=== PATIENT | male | born 1955 | race Caucasian/White ===

== ENCOUNTER 2016-05-27 11:14 | Inpatient (IN) | payer OTHER ==
[2016-05-27 12:30] VITALS: BMI 23.7
--- NOTE | 2016-05-27 13:49 | HP ---
COWS - Scale Resting Pulse: 0= [place] 80 or Below Sweatin=Flushed/Facial Moisture Restless Observation: 3= Extraneous Movement Pupil Size: 2= Moderately Dilated Bone or Joint Aches: 2= Severe Diffuse Aches Runny Nose/ Eye Tearin= Runny Nose/Eyes GI Upset > 30mins: 3= Vomiting/Diarrhea Tremor Observation: 2= Slight Tremor Visible Yawning Observation: 2= >3x During Session Anxiety or Irritability: 2=Irritable/Anxious Goose Flesh Skin: 0=Smooth Skin COWS Score: 20 Admission ROS BHS - HPI Chief Complaint: i need help to stop using drug heroin Allergies/Adverse Reactions: Allergies Allergy/AdvReac Type Severity Reaction Status Date / Time cyclobenzaprine HCl Allergy Severe Rash Verified 05/27/16 13:51 [facility] History of Present Illness: this 60 years old male with heroin dependence,withdrawal symptom,last detox 1014 low back pain nicotine dependence longest period of sobriety 15 years needed help to stop using drug Exam Limitations: No Limitations - Ebola screening Have you traveled outside of the country in the last 21 days: No Have you been sick,other than usual withdrawal symptoms: No - Review of Systems Constitutional: Chills, Diaphoresis, Loss of Appetite, Malaise, Night Sweats, Changes in sleep, Weakness, Unintentional Wgt. Loss EENT: reports: Nose Congestion Respiratory: reports: No Symptoms reported Cardiac: reports: No Symptoms Reported GI: reports: Diarrhea, Vomiting, Indigestion, Abdominal cramping : reports: No Symptoms Reported Musculoskeletal: reports: Back Pain, Joint Pain, Muscle Pain Integumentary: reports: Dryness Neuro: reports: Headache, Tremors Endocrine: reports: No Symptoms Reported Hematology: reports: No Symptoms Reported Psychiatric: reports: No Sypmtoms Reported Other Systems: Reviewed and Negative Patient History - Patient Medical History Hx Anemia: No Hx Asthma: No Hx Chronic Obstructive Pulmonary Disease (COPD): No Hx Cancer: No Hx Cardiac Disorders: No Hx Congestive Heart Failure: No Hx Hypertension: No Hx Hypercholesterolemia: No Hx Pacemaker: No HX Cerebrovascular Accident: No Hx Seizures: No Hx Dementia: No Hx Diabetes: No Hx Gastrointestinal Disorders: No Hx Liver Disease: No Hx Genitourinary Disorders: No Hx Sexually Transmitted Disorders: No Hx Renal Disease (ESRD): No Hx Thyroid Disease: No Hx Human Immunodeficiency Virus (HIV): No (last 03/25 negative) Hx Hepatitis C: No Hx Depression: No Hx Suicide Attempt: No Hx Bipolar Disorder: No Hx Schizophrenia: No Other Medical History: no suicidal,no homicidal - Patient Surgical History Past Surgical History: Yes Hx Orthopedic Surgery: Yes (dislocation of right sholder in 1991,sugery for fx left elbow) - PPD History Previous Implant?: Yes Implanted On Prior R Admission?: No PPD to be Administered?: Yes - Smoking Cessation Smoking history: Current every day smoker Have you smoked in the past 12 months: Yes Aproximately how many cigarettes per day: 2 Cigars Per Day: 0 Hx Chewing Tobacco Use: No Initiated information on smoking cessation: Yes 'Breaking Loose' booklet given: 05/27/16 - Substance & Tx. History Hx Alcohol Use: No Hx Substance Use: Yes Substance Use Type: Heroin Hx Substance Use Treatment: Yes (2013) - Substances Abused Heroin Route: Inhalation Frequency: Daily Amount used: 5 BAGS Age of first use: 49 Date of Last Use: 05/26/16 Family Disease History - Family Disease History Family History: Denies Admission [facility] - Vital Signs Vital Signs: Vital Signs - 24 hr 05/27/16 12:28 Temperature 96.8 F L Pulse Rate 54 L Respiratory 18 Rate Blood Pressure 108/59 - Physical General Appearance: Yes: Moderate Distress, Tremorous, Irritable, Sweating, Anxious HEENTM: Yes: Nasal Congestion Respiratory: Yes: Lungs Clear Neck: Yes: Within Normal Limits Breast: Yes: Within Normal Limits Cardiology: Yes: Within Normal Limits, Regular Rhythm, Regular Rate, S1, S2 Abdominal: Yes: Within Normal Limits, Normal Bowel Sounds, Non Tender, Flat, Soft Genitourinary: Yes: Within Normal Limits Back: Yes: Muscle Spasm Musculoskeletal: Yes: Back pain, Joint Stiffness, Muscle Pain Extremities: Yes: Tremors Neurological: Yes: extrusion line operator II-XII NML intact, Fully Oriented, Alert, Motor Strength 5/5 Integumentary: Yes: Dry Lymphatic: Yes: Within Normal Limits - Diagnostic (1) Opioid dependence with withdrawal Current Visit: Yes Status: Acute (2) Chronic low back pain Current Visit: Yes Status: Acute (3) Nicotine dependence Current Visit: Yes Status: Acute (4) Fracture of left elbow Current Visit: Yes Status: Acute (5) S/P surgery for recurrent dislocation of shoulder Current Visit: Yes Status: Acute (6) Weight loss Current Visit: Yes Status: Acute Cleared for Admission [facility] Level of Care: Medically Managed Detox Regimen/Protocol: Methadone [facility] Breath Alcohol Content Breath Alcohol Content: 0 Urine Drug Screen - Results Drug Screen Negative: No Urine Drug Screen Results: OPI-Opiates, MTD-Methadone
[2016-05-27] MEDS ORDERED: ACETAMINOPHEN 325 MG TABLET (FP) PO PRN (14:13)
[2016-05-27] MEDS ORDERED: MAGNESIUM HYDROX 2400MG/30ML ORAL SUSPENSION 30 ML CUP PO PRN (14:13)
[2016-05-27] MEDS ORDERED: MAGNESIUM CITRATE 300 ML BOTTLE PO PRN (14:13)
[2016-05-27] MEDS ORDERED: MAG HYDROX/AL HYDROX/SIMETH 30 ML UNIT-DOSE CUP PO PRN (14:13)
[2016-05-27] MEDS ORDERED: MENTHOL/PHENOL 1 EACH UD MM PRN (14:13)
[2016-05-27] MEDS ORDERED: IBUPROFEN 400 MG TABLET (FP) PO PRN (14:13)
[2016-05-27] MEDS ORDERED: P-EPHED 60MG/TRIPROLIDI 2.5MG TABLET PO PRN (14:13)
[2016-05-27] MEDS ORDERED: guaiFENesin/D-METHORPHAN HB 10 ML UNIT-DOSE CUPS PO PRN (14:13)
[2016-05-27] MEDS ORDERED: hydrOXYzine PAMOATE 25 MG CAPSULE (FP) PO PRN (14:13)
[2016-05-27] MEDS ORDERED: LOPERAMIDE HCL 2 MG CAPSULE PO PRN (14:13)
[2016-05-27] MEDS ORDERED: METHADONE HCL 10 MG TABLET (FOR DETOX USE ONLY) PO ONE ×2 (14:38→23:00)
[2016-05-27] MEDS: diazePAM 5 MG TABLET PO PRN ×2 (15:22→22:03)
[2016-05-27] MEDS: NICOTINE 7 MG/24 HOURS TOPICAL PATCH TD SCH (15:26)
[2016-05-27] MEDS: THIAMINE HCL 100 MG TABLET (FP) PO SCH (22:03)
[2016-05-27 22:32] LABS: URINE APPEARANCE CLEAR; URINE BILIRUBIN NEGATIVE (NEGATIVE); URINE BLOOD NEGATIVE (NEGATIVE); URINE COLOR LTYELLOW; URINE GLUCOSE (UA) NEGATIVE (NEGATIVE); URINE KETONE NEGATIVE (NEGATIVE); URINE LEUK ESTERASE NEGATIVE (NEGATIVE); URINE NITRITE NEGATIVE (NEGATIVE); URINE PROTEIN NEGATIVE (NEGATIVE); URINE UROBILINOGEN NEGATIVE E.U./dl (0.2-1.0)
[2016-05-28] MEDS: diazePAM 5 MG TABLET PO PRN ×2 (05:31→17:17)
[2016-05-28] MEDS ORDERED: METHADONE HCL 10 MG TABLET (FOR DETOX USE ONLY) PO ONE (10:00)
[2016-05-28] MEDS: PRENATAL VITAMINS W/ FOLIC ACID TABLET (FP) PO SCH (10:06)
[2016-05-28] MEDS: NICOTINE 7 MG/24 HOURS TOPICAL PATCH TD SCH (10:06)
[2016-05-28 10:32] LABS: MCH 24.7 pg (25.7-33.7); MCHC 31.8 g/dl (32.0-35.9); MEAN CELL VOLUME 77.6 fl (80-96); MEAN PLT VOLUME 8.6 fl (7.5-11.1); PLATELET COUNT 211 K/MM3 (134-434); RDW 15.3 % (11.9-15.9); WHITE BLOOD COUNT 6.2 K/mm3 (4.0-10.0)
[2016-05-28 10:49] LABS: ALBUMIN 3.9 g/dl (3.4-5.0); ALK PHOS 79 U/L (45-117); ANION GAP 9 (8-16); BILIRUBIN,TOTAL 0.3 mg/dL (0.2-1.0); CALCIUM 8.6 mg/dL (8.5-10.1); CO2 28 mmol/L (21-32); CREATININE 0.9 mg/dL (0.7-1.3); GLUCOSE,RANDOM 83 mg/dL (74-106); SGOT/AST 13 U/L (15-37); SGPT/ALT 19 U/L (12-78); TOT PROT 7.5 g/dl (6.4-8.2)
--- NOTE | 2016-05-28 13:25 | EKG ---
Test Reason : Blood Pressure : / mmHG Vent. Rate : 054 BPM Atrial Rate : 054 BPM P-R Int : 168 ms QRS Dur : 106 ms QT Int : 462 ms P-R-T Axes : 068 053 044 degrees QTc Int : 438 ms SINUS BRADYCARDIA POSSIBLE LEFT ATRIAL ENLARGEMENT BORDERLINE ECG NO PREVIOUS ECGS AVAILABLE Confirmed by MILLA NUNES, LIZZETTE ([id number]) on 05/28/2016 1:24:57 PM Referred By: Confirmed By:LIZZETTE LOYOLA MD
--- NOTE | 2016-05-28 13:56 | PN ---
BHS COWS - Scale Resting Pulse: 0= [place] 80 or Below Sweatin= Chills/Flushing Restless Observation: 1= Difficult to Sit Still Pupil Size: 0= Normal to Room Light Bone or Joint Aches: 1= Mild Discomfort Runny Nose/ Eye Tearin= Nasal Congestion GI Upset > 30mins: 1= Stomach Cramp Tremor Observation of Outstretched Hands: 2= Slight Tremor Visible Yawning Observation: 1= 1-2x During Session Anxiety or Irritability: 2=Irritable/Anxious Goose Flesh Skin: 3=Piloerection COWS Score: 13 BHS Progress Note (SOAP) Subjective: Tremors, Stomach Cramping, Hot / Cold sensations, Sweating, Interrupted sleep. Objective: PT. A & O X 2 (DISORIENTED ABOUT DATE / DAY). 05/28/16 13:54 Vital Signs Temperature 97 F L 05/28/16 10:56 Pulse Rate 61 05/28/16 10:56 Respiratory Rate 18 05/28/16 10:56 Blood Pressure 108/61 05/28/16 10:56 O2 Sat by Pulse Oximetry (%) Laboratory Last Values WBC 6.2 K/mm3 (4.0-10.0) 05/28/16 05:50 RBC 5.13 M/mm3 (4.00-5.60) 05/28/16 05:50 Hgb 12.7 GM/dL (11.7-16.9) 05/28/16 05:50 Hct 39.8 % (35.4-49) 05/28/16 05:50 MCV 77.6 fl (80-96) L 05/28/16 05:50 MCHC 31.8 g/dl (32.0-35.9) L 05/28/16 05:50 RDW 15.3 % (11.9-15.9) 05/28/16 05:50 Plt Count 211 K/MM3 (134-434) 05/28/16 05:50 MPV 8.6 fl (7.5-11.1) 05/28/16 05:50 Sodium 138 mmol/L (136-145) 05/28/16 05:50 Potassium 4.1 mmol/L (3.5-5.1) 05/28/16 05:50 Chloride 101 mmol/L (98-107) 05/28/16 05:50 Carbon Dioxide 28 mmol/L (21-32) 05/28/16 05:50 Anion Gap 9 (8-16) 05/28/16 05:50 BUN 13 mg/dL (7-18) 05/28/16 05:50 Creatinine 0.9 mg/dL (0.7-1.3) 05/28/16 05:50 Creat Clearance w eGFR > 60 (>60) 05/28/16 05:50 Random Glucose 83 mg/dL (74-106) 05/28/16 05:50 Calcium 8.6 mg/dL (8.5-10.1) 05/28/16 05:50 Total Bilirubin 0.3 mg/dL (0.2-1.0) 05/28/16 05:50 AST 13 U/L (15-37) L 05/28/16 05:50 ALT 19 U/L (12-78) 05/28/16 05:50 Alkaline Phosphatase 79 U/L (45-117) 05/28/16 05:50 Total Protein 7.5 g/dl (6.4-8.2) 05/28/16 05:50 Albumin 3.9 g/dl (3.4-5.0) 05/28/16 05:50 Urine Color Ltyellow 05/27/16 22:00 Urine Appearance Clear 05/27/16 22:00 Urine pH 5.0 (5.0-8.0) 05/27/16 22:00 Ur Specific [place] 1.018 (1.001-1.035) 05/27/16 22:00 Urine Protein Negative (NEGATIVE) 05/27/16 22:00 Urine Glucose (UA) Negative (NEGATIVE) 05/27/16 22:00 Urine Ketones Negative (NEGATIVE) 05/27/16 22:00 Urine Blood Negative (NEGATIVE) 05/27/16 22:00 Urine Nitrite Negative (NEGATIVE) 05/27/16 22:00 Urine Bilirubin Negative (NEGATIVE) 05/27/16 22:00 Urine Urobilinogen Negative E.U./dl (0.2-1.0) 05/27/16 22:00 Ur Leukocyte Esterase Negative (NEGATIVE) 05/27/16 22:00 RPR Titer Nonreactive (NONREACTIVE) 05/28/16 05:50 LABS NOTED. Assessment: 05/28/16 13:55 WITHDRAWAL SYMPTOMS. Plan: CONTINUE DETOX.
[2016-05-28] MEDS: diphenhydrAMINE HCL 50 MG CAPSULE PO PRN (22:20)
[2016-05-28] MEDS: THIAMINE HCL 100 MG TABLET (FP) PO SCH (22:20)
[2016-05-29] MEDS: diazePAM 5 MG TABLET PO PRN ×2 (04:20→20:22)
--- NOTE | 2016-05-29 09:50 | PN ---
BHS COWS - Scale Resting Pulse: 0= [place] 80 or Below Sweatin=Flushed/Facial Moisture Restless Observation: 1= Difficult to Sit Still Pupil Size: 0= Normal to Room Light Bone or Joint Aches: 2= Severe Diffuse Aches Runny Nose/ Eye Tearin= Runny Nose/Eyes GI Upset > 30mins: 2= Nausea/Diarrhea Tremor Observation of Outstretched Hands: 2= Slight Tremor Visible Yawning Observation: 1= 1-2x During Session Anxiety or Irritability: 2=Irritable/Anxious Goose Flesh Skin: 0=Smooth Skin COWS Score: 14 BHS Progress Note (SOAP) Subjective: Anxiety,tremors,sweating,interrupted sleep,restless Objective: 05/29/16 09:49 Vital Signs - 8 hr 05/29/16 05/29/16 03:30 06:16 Temperature 96 F L Pulse Rate 53 L Respiratory 18 16 Rate Blood Pressure 96/60 Laboratory Tests 05/27/16 05/28/16 05/28/16 22:00 05:50 05:50 WBC 6.2 RBC 5.13 Hgb 12.7 Hct 39.8 MCV 77.6 L MCHC 31.8 L RDW 15.3 Plt Count 211 MPV 8.6 Sodium 138 Potassium 4.1 Chloride 101 Carbon Dioxide 28 Anion Gap 9 BUN 13 Creatinine 0.9 Creat Clearance w eGFR > 60 Random Glucose 83 Calcium 8.6 Total Bilirubin 0.3 AST 13 L ALT 19 Alkaline Phosphatase 79 Total Protein 7.5 Albumin 3.9 Urine Color Ltyellow Urine Appearance Clear Urine pH 5.0 Ur Specific [place] 1.018 Urine Protein Negative Urine Glucose (UA) Negative Urine Ketones Negative Urine Blood Negative Urine Nitrite Negative Urine Bilirubin Negative Urine Urobilinogen Negative Ur Leukocyte Esterase Negative RPR Titer 05/28/16 05:50 WBC RBC Hgb Hct MCV MCHC RDW Plt Count MPV Sodium Potassium Chloride Carbon Dioxide Anion Gap BUN Creatinine Creat Clearance w eGFR Random Glucose Calcium Total Bilirubin AST ALT Alkaline Phosphatase Total Protein Albumin Urine Color Urine Appearance Urine pH Ur Specific [place] Urine Protein Urine Glucose (UA) Urine Ketones Urine Blood Urine Nitrite Urine Bilirubin Urine Urobilinogen Ur Leukocyte Esterase RPR Titer Nonreactive labs noted Assessment: 05/29/16 09:50 Withdrawal sx. Plan: Continue detox
[2016-05-29] MEDS ORDERED: METHADONE HCL 5 MG TABLET (FOR DETOX USE ONLY) PO ONE (10:00)
[2016-05-29] MEDS: NICOTINE 7 MG/24 HOURS TOPICAL PATCH TD SCH (10:23)
[2016-05-29] MEDS: PRENATAL VITAMINS W/ FOLIC ACID TABLET (FP) PO SCH (10:23)
[2016-05-29 21:58] VITALS: BP 108/69; PULSE 63; TEMP 95.9
[2016-05-29] MEDS: THIAMINE HCL 100 MG TABLET (FP) PO SCH (22:09)
[2016-05-29] MEDS: diphenhydrAMINE HCL 50 MG CAPSULE PO PRN (22:09)
--- NOTE | 2016-05-30 06:16 | PN ---
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
--- NOTE | 2016-05-30 06:18 | DS ---
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 Pertinent Past History: chronic low back pain nicotine dependence history fracture of left elbow history of surgery of recurrent dislocation of right shoulder - Physical Exam Results Vital Signs: Vital Signs Temperature 95.9 F L 05/29/16 21:57 Pulse Rate 63 05/29/16 21:57 Respiratory Rate 18 05/30/16 03:26 Blood Pressure 108/69 05/29/16 21:57 O2 Sat by Pulse Oximetry (%) Pertinent Admission Physical Exam Findings: withdrawal symptom - Medication Discharge Medications: Ambulatory Orders NK [No Known Home Medication] 05/27/16 - Diagnosis (1) Opioid dependence with withdrawal Current Visit: Yes Status: Acute (2) Chronic low back pain Current Visit: Yes Status: Acute (3) Nicotine dependence Current Visit: Yes Status: Acute (4) Fracture of left elbow Current Visit: Yes Status: Acute (5) S/P surgery for recurrent dislocation of shoulder Current Visit: Yes Status: Acute (6) Weight loss Current Visit: Yes Status: Acute - AMA Did Patient Leave Against Medical Advice: Yes
[2016-05-30] MEDS ORDERED: METHADONE HCL 5 MG TABLET (FOR DETOX USE ONLY) PO ONE (10:00)
--- NOTE | 2016-05-30 13:48 | DS ---
[facility] Detox Discharge Summary Admission Date: 05/27/16 Discharge Date: 05/30/16 - History Present History: Opioid Dependence Additional Comments: ADVISED PATIENT TO FOLLOW-UP WITH [facility] / REHAB MEDICAL PROVIDER AFTER DISCHARGE FROM DETOX FOR GENERAL MEDICAL ASSESSMENT. Pertinent Past History: Recent fracture of Left Elbow, Recent surgery for dislocation of shoulder. - Physical Exam Results Vital Signs: Vital Signs Temperature 95.9 F L 05/29/16 21:57 Pulse Rate 63 05/29/16 21:57 Respiratory Rate 18 05/30/16 03:26 Blood Pressure 108/69 05/29/16 21:57 O2 Sat by Pulse Oximetry (%) Pertinent Admission Physical Exam Findings: WITHDRAWAL SYMPTOMS. Laboratory Last Values WBC 6.2 K/mm3 (4.0-10.0) 05/28/16 05:50 RBC 5.13 M/mm3 (4.00-5.60) 05/28/16 05:50 Hgb 12.7 GM/dL (11.7-16.9) 05/28/16 05:50 Hct 39.8 % (35.4-49) 05/28/16 05:50 MCV 77.6 fl (80-96) L 05/28/16 05:50 MCHC 31.8 g/dl (32.0-35.9) L 05/28/16 05:50 RDW 15.3 % (11.9-15.9) 05/28/16 05:50 Plt Count 211 K/MM3 (134-434) 05/28/16 05:50 MPV 8.6 fl (7.5-11.1) 05/28/16 05:50 Sodium 138 mmol/L (136-145) 05/28/16 05:50 Potassium 4.1 mmol/L (3.5-5.1) 05/28/16 05:50 Chloride 101 mmol/L (98-107) 05/28/16 05:50 Carbon Dioxide 28 mmol/L (21-32) 05/28/16 05:50 Anion Gap 9 (8-16) 05/28/16 05:50 BUN 13 mg/dL (7-18) 05/28/16 05:50 Creatinine 0.9 mg/dL (0.7-1.3) 05/28/16 05:50 Creat Clearance w eGFR > 60 (>60) 05/28/16 05:50 Random Glucose 83 mg/dL (74-106) 05/28/16 05:50 Calcium 8.6 mg/dL (8.5-10.1) 05/28/16 05:50 Total Bilirubin 0.3 mg/dL (0.2-1.0) 05/28/16 05:50 AST 13 U/L (15-37) L 05/28/16 05:50 ALT 19 U/L (12-78) 05/28/16 05:50 Alkaline Phosphatase 79 U/L (45-117) 05/28/16 05:50 Total Protein 7.5 g/dl (6.4-8.2) 05/28/16 05:50 Albumin 3.9 g/dl (3.4-5.0) 05/28/16 05:50 Urine Color Ltyellow 05/27/16 22:00 Urine Appearance Clear 05/27/16 22:00 Urine pH 5.0 (5.0-8.0) 05/27/16 22:00 Ur Specific [place] 1.018 (1.001-1.035) 05/27/16 22:00 Urine Protein Negative (NEGATIVE) 05/27/16 22:00 Urine Glucose (UA) Negative (NEGATIVE) 05/27/16 22:00 Urine Ketones Negative (NEGATIVE) 05/27/16 22:00 Urine Blood Negative (NEGATIVE) 05/27/16 22:00 Urine Nitrite Negative (NEGATIVE) 05/27/16 22:00 Urine Bilirubin Negative (NEGATIVE) 05/27/16 22:00 Urine Urobilinogen Negative E.U./dl (0.2-1.0) 05/27/16 22:00 Ur Leukocyte Esterase Negative (NEGATIVE) 05/27/16 22:00 RPR Titer Nonreactive (NONREACTIVE) 05/28/16 05:50 LABS NOTED. - Treatment Hospital Course: Detoxed Safely, Responded well - Medication Discharge Medications: Ambulatory Orders NK [No Known Home Medication] 05/27/16 - Diagnosis (1) Chronic low back pain Status: Chronic Qualifiers: Back pain laterality: unspecified Sciatica presence: with sciatica presence unspecified Qualified Code(s): M54.5 - Low back pain; G89.29 - Other chronic pain (2) Nicotine dependence Status: Chronic Qualifiers: Nicotine product type: cigarettes Substance use status: uncomplicated Qualified Code(s): F17.210 - Nicotine dependence, cigarettes, uncomplicated (3) Opioid dependence with withdrawal Status: Acute (4) S/P surgery for recurrent dislocation of shoulder Status: Acute (5) Fracture of left elbow Status: Acute Qualifiers: Encounter type: sequela Qualified Code(s): S42.402S - Unspecified fracture of lower end of left humerus, sequela - AMA Did Patient Leave Against Medical Advice: Yes (PTIENT DID NOT WANT TO STAY TO COMPLETE DETOX PROTOCOL.)
[2016-05-31] MEDS ORDERED: METHADONE HCL 10 MG TABLET (FOR DETOX USE ONLY) PO ONE (10:00)
[2016-06-01] MEDS ORDERED: METHADONE HCL 5 MG TABLET (FOR DETOX USE ONLY) PO ONE (06:00)
== END 2016-05-30 06:15 | disposition left against medical advice (07) | DRG 894 ==
LOC: YASAS 11:14 → Y3N 14:02
PROVIDERS: ADMIT Internal Medicine; ATTEND Internal Medicine
PROC: HZ2ZZZZ Detoxification Services for Substance Abuse Treatment (ICD-10-PCS; principal; 2016-05-27)
DX: F11.23 Opioid dependence with withdrawal (principal); F17.210 Nicotine dependence, cigarettes, uncomplicated; M54.5 Low back pain; G89.29 Other chronic pain; Z87.898 Personal history of other specified conditions
CPT/HCPCS: 36415; 80053; 81003; 85027; 86593; 93005; 93010

== ENCOUNTER 2016-08-22 15:23 | Inpatient (IN) | payer OTHER ==
[2016-08-22 17:34] VITALS: BMI 24.2
[2016-08-22] MEDS ORDERED: METHADONE HCL 10 MG TABLET (FOR DETOX USE ONLY) PO ONE ×2 (19:37→23:00)
[2016-08-22] MEDS ORDERED: MENTHOL/PHENOL 1 EACH UD MM PRN (19:37)
[2016-08-22] MEDS ORDERED: MAGNESIUM HYDROX 2400MG/30ML ORAL SUSPENSION 30 ML CUP PO PRN (19:37)
[2016-08-22] MEDS ORDERED: IBUPROFEN 400 MG TABLET (FP) PO PRN (19:37)
[2016-08-22] MEDS ORDERED: MAGNESIUM CITRATE 300 ML BOTTLE PO PRN (19:37)
[2016-08-22] MEDS ORDERED: ACETAMINOPHEN 325 MG TABLET (FP) PO PRN (19:37)
[2016-08-22] MEDS ORDERED: P-EPHED 60MG/TRIPROLIDI 2.5MG TABLET PO PRN (19:37)
[2016-08-22] MEDS ORDERED: NICOTINE POLACRILEX 2 MG GUM BC PRN (19:37)
[2016-08-22] MEDS ORDERED: guaiFENesin/D-METHORPHAN HB 10 ML UNIT-DOSE CUPS PO PRN (19:37)
[2016-08-22] MEDS ORDERED: LOPERAMIDE HCL 2 MG CAPSULE PO PRN (19:37)
[2016-08-22] MEDS ORDERED: MAG HYDROX/AL HYDROX/SIMETH 30 ML UNIT-DOSE CUP PO PRN (19:37)
--- NOTE | 2016-08-22 19:37 | HP ---
COWS - Scale Resting Pulse: 1= [place] 81-100 Sweatin= Chills/Flushing Restless Observation: 3= Extraneous Movement Pupil Size: 0= Normal to Room Light Bone or Joint Aches: 2= Severe Diffuse Aches Runny Nose/ Eye Tearin= Runny Nose/Eyes GI Upset > 30mins: 1= Stomach Cramp Tremor Observation: 2= Slight Tremor Visible Yawning Observation: 0= None Anxiety or Irritability: 2=Irritable/Anxious Goose Flesh Skin: 0=Smooth Skin COWS Score: 14 Admission [facility] Chief Complaint: WITHDRAWAL SX Allergies/Adverse Reactions: Allergies Allergy/AdvReac Type Severity Reaction Status Date / Time cyclobenzaprine HCl Allergy Severe Rash Verified 08/22/16 19:00 [From Flexeril] History of Present Illness: 61 YEARS OLD MALE WITH LONG HISTORY OF OPIOID NICOTINE DEPENDENCE HAS WEIGHT LOSS ASTHMA CHRONIC BACK PAIN IS ADMITTED TO DETOX Exam Limitations: No Limitations - Ebola screening Have you traveled outside of the country in the last 21 days: No Have you had contact with anyone from an Ebola affected area: No Have you been sick,other than usual withdrawal symptoms: No Do you have a fever: No - Review of Systems Constitutional: Chills, Loss of Appetite, Changes in sleep, Unintentional Wgt. Loss, Unexplained wgt Loss EENT: reports: No Symptoms Reported Respiratory: reports: SOB with Exertion Cardiac: reports: No Symptoms Reported GI: reports: Nausea, Poor Appetite, Poor Fluid Intake, Abdominal cramping : reports: No Symptoms Reported Musculoskeletal: reports: Back Pain, Joint Pain, Muscle Pain, Neck Pain Integumentary: reports: No Symptoms Reported Neuro: reports: Tremors Endocrine: reports: No Symptoms Reported Hematology: reports: No Symptoms Reported Psychiatric: reports: Judgement Intact, Mood/Affect Appropiate, Orientated x3 Other Systems: Reviewed and Negative Patient History - Patient Medical History Hx Anemia: No Hx Asthma: No Hx Chronic Obstructive Pulmonary Disease (COPD): No Hx Cancer: No Hx Cardiac Disorders: No Hx Congestive Heart Failure: No Hx Hypertension: No Hx Hypercholesterolemia: No Hx Pacemaker: No HX Cerebrovascular Accident: No Hx Seizures: No Hx Dementia: No Hx Diabetes: No Hx Gastrointestinal Disorders: No Hx Liver Disease: No Hx Genitourinary Disorders: No Hx Sexually Transmitted Disorders: No Hx Renal Disease (ESRD): No Hx Thyroid Disease: No Hx Human Immunodeficiency Virus (HIV): No (last 03/25 negative) Hx Hepatitis C: No Hx Depression: No Hx Suicide Attempt: No Hx Bipolar Disorder: No Hx Schizophrenia: No - Patient Surgical History Past Surgical History: Yes Hx Neurologic Surgery: No Hx Cataract Extraction: No Hx Cardiac Surgery: No Hx Lung Surgery: No Hx Breast Surgery: No Hx Breast Biopsy: No Hx Abdominal Surgery: No Hx Appendectomy: No Hx Genitourinary Surgery: No Hx Orthopedic Surgery: Yes (dislocation of right sholder in 1991,sugery for fx left elbow) Anesthesia Reaction: No - PPD History Previous Implant?: Yes Documented Results: Negative w/proof Implanted On Prior [facility] Admission?: Yes Date: 05/29/16 PPD to be Administered?: No - Smoking Cessation Smoking history: Current every day smoker Have you smoked in the past 12 months: Yes Aproximately how many cigarettes per day: 6 Cigars Per Day: 0 Hx Chewing Tobacco Use: No Initiated information on smoking cessation: Yes 'Breaking Loose' booklet given: 08/22/16 - Substance & Tx. History Hx Alcohol Use: No Hx Substance Use: Yes Substance Use Type: Opiates Hx Substance Use Treatment: Yes - Substances Abused Heroin Route: Injection Frequency: Daily Amount used: 10 BAGS Age of first use: 29 Date of Last Use: 08/22/16 Family Disease History - Family Disease History Family Disease History: Other: Mother () Admission Physical Exam BHS - Vital Signs Vital Signs: Vital Signs - 24 hr 08/22/16 17:32 Temperature 98.1 F Pulse Rate 53 L Respiratory 20 Rate Blood Pressure 104/59 - Physical General Appearance: Yes: Appropriately Dressed, Mild Distress, Thin, Tremorous, Irritable, Sweating, Anxious HEENTM: Yes: Hearing grossly Normal, Normal ENT Inspection, Normocephalic, Normal Voice Respiratory: Yes: Chest Non-Tender, No Respiratory Distress, No Accessory Muscle Use, Wheezing Neck: Yes: Supple, Trachea in good position Breast: Yes: Breasts Symetrical Cardiology: Yes: Regular Rhythm, S1, S2, Bradycardia Abdominal: Yes: Non Tender, Soft Genitourinary: Yes: Within Normal Limits Back: Yes: Normal Inspection, Decreased Range of Motion Musculoskeletal: Yes: Gait Steady, Back pain, Muscle Pain Extremities: Yes: Non-Tender, Tremors Neurological: Yes: Fully Oriented, Alert, Motor Strength 5/5, Normal Mood/Affect , Normal Response, Other (LUMBAR SCAR) Integumentary: Yes: Warm Lymphatic: Yes: Within Normal Limits - Diagnostic (1) Opioid dependence with withdrawal Current Visit: No Status: Acute (2) S/P surgery for recurrent dislocation of shoulder Current Visit: Yes Status: Resolved (3) Weight loss Current Visit: Yes Status: Acute (4) Chronic low back pain Current Visit: Yes Status: Chronic Qualifiers: Back pain laterality: unspecified Sciatica presence: without sciatica Qualified Code(s): M54.5 - Low back pain; G89.29 - Other chronic pain (5) Nicotine dependence Current Visit: Yes Status: Acute Qualifiers: Nicotine product type: cigarettes Substance use status: in withdrawal Qualified Code(s): F17.213 - Nicotine dependence, cigarettes, with withdrawal (6) S/P lumbar discectomy Current Visit: Yes Status: Resolved (7) Asthma Current Visit: Yes Status: Chronic Qualifiers: Asthma severity: mild persistent Asthma complication type: with status asthmaticus Qualified Code(s): J45.32 - Mild persistent asthma with status asthmaticus Cleared for Admission [facility] - Detox or Rehab [facility] Level of Care: Medically Managed Detox Regimen/Protocol: Methadone [facility] Breath Alcohol Content Breath Alcohol Content: 0 Urine Drug Screen - Results Drug Screen Negative: No Urine Drug Screen Results: OPI-Opiates
[2016-08-22] MEDS ORDERED: ALBUTEROL SO4 2.5/IPRATROPIUM 0.5 INH SOL 3 ML VIAL.NEB. NEB PRN (19:38)
[2016-08-22] MEDS ORDERED: ALBUTEROL SO4 6.7 GM HFA INHALER IH PRN (19:38)
[2016-08-22] MEDS: diazePAM 5 MG TABLET PO PRN (21:03)
[2016-08-22 22:14] LABS: URINE APPEARANCE CLOUDY; URINE BILIRUBIN NEGATIVE (NEGATIVE); URINE BLOOD NEGATIVE (NEGATIVE); URINE COLOR YELLOW; URINE GLUCOSE (UA) NEGATIVE (NEGATIVE); URINE KETONE NEGATIVE (NEGATIVE); URINE LEUK ESTERASE NEGATIVE (NEGATIVE); URINE NITRITE NEGATIVE (NEGATIVE); URINE PROTEIN NEGATIVE (NEGATIVE); URINE UROBILINOGEN NEGATIVE E.U./dl (0.2-1.0)
[2016-08-22] MEDS: THIAMINE HCL 100 MG TABLET (FP) PO SCH (22:16)
[2016-08-23] MEDS ORDERED: METHADONE HCL 10 MG TABLET (FOR DETOX USE ONLY) PO ONE (10:00)
[2016-08-23 10:32] LABS: MCH 24.7 pg (25.7-33.7); MCHC 32.4 g/dl (32.0-35.9); MEAN CELL VOLUME 76.1 fl (80-96); MEAN PLT VOLUME 8.4 fl (7.5-11.1); PLATELET COUNT 209 K/MM3 (134-434); RDW 14.9 % (11.9-15.9); WHITE BLOOD COUNT 8.1 K/mm3 (4.0-10.0)
[2016-08-23] MEDS: diazePAM 5 MG TABLET PO PRN ×3 (10:48→23:04)
[2016-08-23] MEDS: PRENATAL VITAMINS W/ FOLIC ACID TABLET (FP) PO SCH (10:48)
[2016-08-23] MEDS: NICOTINE 14 MG/24 HOURS TOPICAL PATCH TD SCH (10:52)
[2016-08-23] MEDS: LIDOCAINE 5% TOPICAL PATCH TP SCH (10:52)
[2016-08-23 10:53] LABS: ALBUMIN 3.3 g/dl (3.4-5.0); ALK PHOS 88 U/L (45-117); ANION GAP 3 (8-16); BILIRUBIN,TOTAL 0.4 mg/dL (0.2-1.0); CALCIUM 8.6 mg/dL (8.5-10.1); CO2 33 mmol/L (21-32); COCKROFT - GAULT 85.04; CREATININE 0.9 mg/dL (0.7-1.3); GLUCOSE,RANDOM 84 mg/dL (74-106); SGPT/ALT 32 U/L (12-78); TOT PROT 6.4 g/dl (6.4-8.2)
--- NOTE | 2016-08-23 11:52 | PN ---
BHS COWS - Scale Resting Pulse: 0= [place] 80 or Below Sweatin= Chills/Flushing Restless Observation: 3= Extraneous Movement Pupil Size: 1= Pupils >than Normal Bone or Joint Aches: 2= Severe Diffuse Aches Runny Nose/ Eye Tearin= Runny Nose/Eyes GI Upset > 30mins: 3= Vomiting/Diarrhea Tremor Observation of Outstretched Hands: 2= Slight Tremor Visible Yawning Observation: 1= 1-2x During Session Anxiety or Irritability: 2=Irritable/Anxious Goose Flesh Skin: 0=Smooth Skin COWS Score: 17 BHS Progress Note (SOAP) Subjective: ALERT,IRRITABLE,ANXIOUS,INTERRUPTED SLEEP,PAIN IN THE BODY AND BACK Objective: 08/23/16 11:51 Vital Signs Temperature 95.5 F L 08/23/16 09:47 Pulse Rate 56 L 08/23/16 09:47 Respiratory Rate 16 08/23/16 09:47 Blood Pressure 115/55 08/23/16 09:47 O2 Sat by Pulse Oximetry (%) EKG NSR,NORMAL ECG Laboratory Last Values WBC 8.1 K/mm3 (4.0-10.0) D 08/23/16 07:00 RBC 4.74 M/mm3 (4.00-5.60) 08/23/16 07:00 Hgb 11.7 GM/dL (11.7-16.9) 08/23/16 07:00 Hct 36.0 % (35.4-49) 08/23/16 07:00 MCV 76.1 fl (80-96) L 08/23/16 07:00 MCHC 32.4 g/dl (32.0-35.9) 08/23/16 07:00 RDW 14.9 % (11.9-15.9) 08/23/16 07:00 Plt Count 209 K/MM3 (134-434) 08/23/16 07:00 MPV 8.4 fl (7.5-11.1) 08/23/16 07:00 Sodium 140 mmol/L (136-145) 08/23/16 07:00 Potassium 4.2 mmol/L (3.5-5.1) 08/23/16 07:00 Chloride 104 mmol/L (98-107) 08/23/16 07:00 Carbon Dioxide 33 mmol/L (21-32) H 08/23/16 07:00 Anion Gap 3 (8-16) L 08/23/16 07:00 BUN 13 mg/dL (7-18) 08/23/16 07:00 Creatinine 0.9 mg/dL (0.7-1.3) 08/23/16 07:00 Creat Clearance w eGFR > 60 (>60) 08/23/16 07:00 Random Glucose 84 mg/dL (74-106) 08/23/16 07:00 Calcium 8.6 mg/dL (8.5-10.1) 08/23/16 07:00 Total Bilirubin 0.4 mg/dL (0.2-1.0) D 08/23/16 07:00 ALT 32 U/L (12-78) D 08/23/16 07:00 Alkaline Phosphatase 88 U/L (45-117) 08/23/16 07:00 Total Protein 6.4 g/dl (6.4-8.2) 08/23/16 07:00 Albumin 3.3 g/dl (3.4-5.0) L 08/23/16 07:00 Urine Color Yellow 08/22/16 21:30 Urine Appearance Cloudy 08/22/16 21:30 Urine pH 5.0 (5.0-8.0) 08/22/16 21:30 Ur Specific [place] >= 1.030 (1.005-1.025) H 08/22/16 21:30 Urine Protein Negative (NEGATIVE) 08/22/16 21:30 Urine Glucose (UA) Negative (NEGATIVE) 08/22/16 21:30 Urine Ketones Negative (NEGATIVE) 08/22/16 21:30 Urine Blood Negative (NEGATIVE) 08/22/16 21:30 Urine Nitrite Negative (NEGATIVE) 08/22/16 21:30 Urine Bilirubin Negative (NEGATIVE) 08/22/16 21:30 Urine Urobilinogen Negative E.U./dl (0.2-1.0) 08/22/16 21:30 Ur Leukocyte Esterase Negative (NEGATIVE) 08/22/16 21:30 08/23/16 11:51 LABS PENDING Assessment: 08/23/16 11:51 WITHDRAWAL SYMPTOM Plan: CONTINUE DETOX
[2016-08-23 12:03] LABS: SGOT/AST 17 U/L (15-37)
--- NOTE | 2016-08-23 17:20 | EKG ---
Test Reason : Blood Pressure : / mmHG Vent. Rate : 060 BPM Atrial Rate : 060 BPM P-R Int : 180 ms QRS Dur : 108 ms QT Int : 452 ms P-R-T Axes : 066 045 048 degrees QTc Int : 452 ms NORMAL SINUS RHYTHM RSR' OR QR PATTERN IN V1 SUGGESTS RIGHT VENTRICULAR CONDUCTION DELAY BORDERLINE ECG WHEN COMPARED WITH ECG OF 27-MAY-2016 15:42, NO SIGNIFICANT CHANGE WAS FOUND Confirmed by LIZZETTE LOYOLA MD ([id number]) on 08/23/2016 5:20:30 PM Referred By: Confirmed By:LIZZETTE LOYOLA MD
[2016-08-23] MEDS: THIAMINE HCL 100 MG TABLET (FP) PO SCH (23:03)
[2016-08-23] MEDS: diphenhydrAMINE HCL 50 MG CAPSULE PO PRN (23:03)
[2016-08-24] MEDS: diphenhydrAMINE HCL 50 MG CAPSULE PO PRN ×2 (01:35→22:33)
[2016-08-24] MEDS ORDERED: METHADONE HCL 5 MG TABLET (FOR DETOX USE ONLY) PO ONE (10:00)
[2016-08-24] MEDS: PRENATAL VITAMINS W/ FOLIC ACID TABLET (FP) PO SCH (10:42)
[2016-08-24] MEDS: diazePAM 5 MG TABLET PO PRN ×3 (10:43→22:33)
[2016-08-24] MEDS: NICOTINE 14 MG/24 HOURS TOPICAL PATCH TD SCH (10:43)
[2016-08-24] MEDS: LIDOCAINE 5% TOPICAL PATCH TP SCH (11:06)
--- NOTE | 2016-08-24 11:46 | PN ---
BHS COWS - Scale Resting Pulse: 0= [place] 80 or Below Sweatin=Flushed/Facial Moisture Restless Observation: 1= Difficult to Sit Still Pupil Size: 0= Normal to Room Light Bone or Joint Aches: 2= Severe Diffuse Aches Runny Nose/ Eye Tearin= Runny Nose/Eyes GI Upset > 30mins: 0= None Tremor Observation of Outstretched Hands: 2= Slight Tremor Visible Yawning Observation: 2= >3x During Session Anxiety or Irritability: 2=Irritable/Anxious Goose Flesh Skin: 0=Smooth Skin COWS Score: 13 BHS Progress Note (SOAP) Subjective: body aches agitation anxiety sweats shakes Objective: 08/24/16 11:45 Vital Signs Temperature 97.2 F L 08/24/16 09:45 Pulse Rate 59 L 08/24/16 09:45 Respiratory Rate 18 08/24/16 09:45 Blood Pressure 112/52 08/24/16 09:45 O2 Sat by Pulse Oximetry (%) Laboratory Tests 08/22/16 08/23/16 08/23/16 21:30 07:00 07:00 WBC 8.1 D RBC 4.74 Hgb 11.7 Hct 36.0 MCV 76.1 L MCHC 32.4 RDW 14.9 Plt Count 209 MPV 8.4 Sodium 140 Potassium 4.2 Chloride 104 Carbon Dioxide 33 H Anion Gap 3 L BUN 13 Creatinine 0.9 Creat Clearance w eGFR > 60 Random Glucose 84 Calcium 8.6 Total Bilirubin 0.4 D AST 17 D ALT 32 D Alkaline Phosphatase 88 Total Protein 6.4 Albumin 3.3 L Urine Color Yellow Urine Appearance Cloudy Urine pH 5.0 Ur Specific [place] >= 1.030 H Urine Protein Negative Urine Glucose (UA) Negative Urine Ketones Negative Urine Blood Negative Urine Nitrite Negative Urine Bilirubin Negative Urine Urobilinogen Negative Ur Leukocyte Esterase Negative RPR Titer 08/23/16 07:00 WBC RBC Hgb Hct MCV MCHC RDW Plt Count MPV Sodium Potassium Chloride Carbon Dioxide Anion Gap BUN Creatinine Creat Clearance w eGFR Random Glucose Calcium Total Bilirubin AST ALT Alkaline Phosphatase Total Protein Albumin Urine Color Urine Appearance Urine pH Ur Specific [place] Urine Protein Urine Glucose (UA) Urine Ketones Urine Blood Urine Nitrite Urine Bilirubin Urine Urobilinogen Ur Leukocyte Esterase RPR Titer Nonreactive awake/alert ambulating no acute distress Assessment: 08/24/16 11:46 withdrawal sx Plan: continue detox increase fluids
[2016-08-24] MEDS: THIAMINE HCL 100 MG TABLET (FP) PO SCH (22:33)
[2016-08-25] MEDS: diazePAM 5 MG TABLET PO PRN (03:03)
[2016-08-25 06:42] VITALS: BP 107/53; PULSE 59; TEMP 97.9
--- NOTE | 2016-08-25 08:49 | PN ---
BHS Progress Note (SOAP) Subjective: ALERT,INTERRUPTED SLEEP,PAIN IN THE BODY AND BACK Objective: 08/25/16 08:48 Vital Signs Temperature 97.9 F 08/25/16 06:42 Pulse Rate 59 L 08/25/16 06:42 Respiratory Rate 16 08/25/16 06:42 Blood Pressure 107/53 08/25/16 06:42 O2 Sat by Pulse Oximetry (%) Assessment: 08/25/16 08:48 WITHDRAWAL SYMPTOM Plan: CONTINUE DETOX
--- NOTE | 2016-08-25 08:50 | PN ---
S Progress Note Note: PATIENT DID NOT WANT TO COMPLETE TREATMENT,SIGNED RELEASE AMA,DID NOT WANT TO WAIT
--- NOTE | 2016-08-25 08:56 | DS ---
[facility] Detox Discharge Summary Admission Date: 08/22/16 Discharge Date: 08/25/16 - History Present History: Opioid Dependence Additional Comments: PATIENT DID NOT WANT TO COMPLETE TREATMENT,SIGNED RELEASE AMA,DID NOT WANT TO WAIT Pertinent Past History: CHRONIC LOW BACK PAIN ASTHMA S/P BACK SURGERY WEIGHT LOSS - Physical Exam Results Vital Signs: Vital Signs Temperature 97.9 F 08/25/16 06:42 Pulse Rate 59 L 08/25/16 06:42 Respiratory Rate 16 08/25/16 06:42 Blood Pressure 107/53 08/25/16 06:42 O2 Sat by Pulse Oximetry (%) Pertinent Admission Physical Exam Findings: WITHDRAWAL SYMPTOM - Medication Discharge Medications: Ambulatory Orders NK [No Known Home Medication] 05/27/16 - Diagnosis (1) Weight loss Status: Acute (2) Asthma Status: Chronic Qualifiers: Asthma severity: mild persistent Asthma complication type: with status asthmaticus Qualified Code(s): J45.32 - Mild persistent asthma with status asthmaticus (3) Chronic low back pain Status: Chronic Qualifiers: Back pain laterality: unspecified Sciatica presence: without sciatica Qualified Code(s): M54.5 - Low back pain; G89.29 - Other chronic pain (4) S/P lumbar discectomy Status: Resolved (5) S/P surgery for recurrent dislocation of shoulder Status: Resolved (6) Opioid dependence with withdrawal Status: Acute - AMA Did Patient Leave Against Medical Advice: Yes
[2016-08-25] MEDS ORDERED: METHADONE HCL 5 MG TABLET (FOR DETOX USE ONLY) PO ONE (10:00)
[2016-08-26] MEDS ORDERED: METHADONE HCL 10 MG TABLET (FOR DETOX USE ONLY) PO ONE (10:00)
[2016-08-27] MEDS ORDERED: METHADONE HCL 5 MG TABLET (FOR DETOX USE ONLY) PO ONE (06:00)
== END 2016-08-25 07:20 | disposition left against medical advice (07) | DRG 894 ==
LOC: YASAS 15:23 → Y6N 19:06
PROVIDERS: ADMIT Internal Medicine Addiction Medicine; ATTEND Internal Medicine Addiction Medicine
PROC: HZ2ZZZZ Detoxification Services for Substance Abuse Treatment (ICD-10-PCS; principal; 2016-08-25)
DX: F11.23 Opioid dependence with withdrawal (principal); J45.32 Mild persistent asthma with status asthmaticus; M54.5 Low back pain; G89.29 Other chronic pain; R63.4 Abnormal weight loss; Z68.24 Body mass index [BMI] 24.0-24.9, adult
CPT/HCPCS: 36415; 80053; 81003; 85027; 86593; 93005; 93010

== ENCOUNTER 2016-10-17 16:14 | Inpatient (IN) | payer OTHER ==
[2016-10-17 16:47] VITALS: BMI 25.4
[2016-10-17] MEDS ORDERED: guaiFENesin/D-METHORPHAN HB 10 ML UNIT-DOSE CUPS PO PRN (17:50)
[2016-10-17] MEDS ORDERED: MENTHOL/PHENOL 1 EACH UD MM PRN (17:50)
[2016-10-17] MEDS ORDERED: LOPERAMIDE HCL 2 MG CAPSULE PO PRN (17:50)
[2016-10-17] MEDS ORDERED: P-EPHED 60MG/TRIPROLIDI 2.5MG TABLET PO PRN (17:50)
[2016-10-17] MEDS ORDERED: NICOTINE POLACRILEX 2 MG GUM BC PRN (17:50)
[2016-10-17] MEDS ORDERED: MAGNESIUM HYDROX 2400MG/30ML ORAL SUSPENSION 30 ML CUP PO PRN (17:50)
[2016-10-17] MEDS ORDERED: MAG HYDROX/AL HYDROX/SIMETH 30 ML UNIT-DOSE CUP PO PRN (17:50)
[2016-10-17] MEDS ORDERED: ACETAMINOPHEN 325 MG TABLET (FP) PO PRN (17:50)
[2016-10-17] MEDS ORDERED: MAGNESIUM CITRATE 300 ML BOTTLE PO PRN (17:50)
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
[2016-10-17] MEDS ORDERED: ALBUTEROL SO4 6.7 GM HFA INHALER IH PRN (17:53)
[2016-10-17] MEDS ORDERED: NICOTINE 14 MG/24 HOURS TOPICAL PATCH TD PRN (18:45)
[2016-10-17] MEDS ORDERED: METHADONE HCL 10 MG TABLET (FOR DETOX USE ONLY) PO ONE ×2 (18:45→23:00)
[2016-10-17] MEDS: diazePAM 5 MG TABLET PO PRN (18:47)
[2016-10-17] MEDS: ASPIRIN 81 MG CHEWABLE TABLETS PO SCH (18:47)
[2016-10-17 21:42] LABS: URINE APPEARANCE CLEAR; URINE BILIRUBIN NEGATIVE (NEGATIVE); URINE BLOOD NEGATIVE (NEGATIVE); URINE COLOR LTYELLOW; URINE GLUCOSE (UA) NEGATIVE (NEGATIVE); URINE KETONE NEGATIVE (NEGATIVE); URINE LEUK ESTERASE NEGATIVE (NEGATIVE); URINE NITRITE NEGATIVE (NEGATIVE); URINE PROTEIN NEGATIVE (NEGATIVE); URINE UROBILINOGEN NEGATIVE E.U./dl (0.2-1.0)
[2016-10-17] MEDS: RANITIDINE HCL 150 MG TABLET (FP) PO SCH (22:15)
[2016-10-17] MEDS: THIAMINE HCL 100 MG TABLET (FP) PO SCH (22:15)
--- NOTE | 2016-10-18 09:58 | PN ---
BHS COWS - Scale Resting Pulse: 0= [place] 80 or Below Sweatin= Chills/Flushing Restless Observation: 1= Difficult to Sit Still Pupil Size: 0= Normal to Room Light Bone or Joint Aches: 2= Severe Diffuse Aches Runny Nose/ Eye Tearin= Nasal Congestion GI Upset > 30mins: 2= Nausea/Diarrhea Tremor Observation of Outstretched Hands: 2= Slight Tremor Visible Yawning Observation: 1= 1-2x During Session Anxiety or Irritability: 2=Irritable/Anxious Goose Flesh Skin: 0=Smooth Skin COWS Score: 12 BHS Progress Note (SOAP) Subjective: Tremors, sweating, Body Aches, Diarrhea. Objective: PT. A & O X 3, OBSERVED AMBULATING ON UNIT. NO ACUTE DISTRESS. 10/18/16 09:57 Vital Signs Temperature 96.3 F L 10/18/16 09:04 Pulse Rate 54 L 10/18/16 09:04 Respiratory Rate 18 10/18/16 09:04 Blood Pressure 97/58 10/18/16 09:04 O2 Sat by Pulse Oximetry (%) Laboratory Tests 10/17/16 21:15 Urine Color Ltyellow Urine Appearance Clear Urine pH 5.0 Urine Protein Negative Urine Glucose (UA) Negative Urine Ketones Negative Urine Blood Negative Urine Nitrite Negative Urine Bilirubin Negative Urine Urobilinogen Negative Ur Leukocyte Esterase Negative UA RESULTS NOTED. OTHER LAB RESULTS PENDING. Assessment: 10/18/16 09:58 WITHDRAWAL SYMPTOMS. Plan: CONTINUE DETOX. INCREASE PO FLUID INTAKE. PRN IMMODIUM FOR DIARRHEA.
[2016-10-18 10:00] LABS: MCH 24.4 pg (25.7-33.7); MCHC 31.9 g/dl (32.0-35.9); MEAN CELL VOLUME 76.4 fl (80-96); MEAN PLT VOLUME 8.7 fl (7.5-11.1); PLATELET COUNT 164 K/MM3 (134-434); RDW 15.2 % (11.9-15.9); WHITE BLOOD COUNT 6.1 K/mm3 (4.0-10.0)
[2016-10-18] MEDS ORDERED: METHADONE HCL 10 MG TABLET (FOR DETOX USE ONLY) PO ONE (10:00)
[2016-10-18 10:11] LABS: ALBUMIN 3.1 g/dl (3.4-5.0); ANION GAP 6 (8-16); CALCIUM 8.7 mg/dL (8.5-10.1); CO2 31 mmol/L (21-32); GLUCOSE,RANDOM 85 mg/dL (74-106)
[2016-10-18] MEDS: RANITIDINE HCL 150 MG TABLET (FP) PO SCH ×2 (10:11→22:13)
[2016-10-18] MEDS: PRENATAL VITAMINS W/ FOLIC ACID TABLET (FP) PO SCH (10:11)
[2016-10-18] MEDS: ASPIRIN 81 MG CHEWABLE TABLETS PO SCH (10:11)
[2016-10-18] MEDS: diazePAM 5 MG TABLET PO PRN ×2 (10:12→22:13)
[2016-10-18 10:15] LABS: ALK PHOS 66 U/L (45-117); BILIRUBIN,TOTAL 0.2 mg/dL (0.2-1.0); CREATININE 0.9 mg/dL (0.7-1.3); SGOT/AST 15 U/L (15-37); SGPT/ALT 20 U/L (12-78); TOT PROT 6.3 g/dl (6.4-8.2)
[2016-10-18 10:54] LABS: HIV 1 & 2 AB NEGATIVE; HIV 1 AGp24 NEGATIVE
--- NOTE | 2016-10-18 17:18 | EKG ---
Test Reason : Blood Pressure : / mmHG Vent. Rate : 051 BPM Atrial Rate : 051 BPM P-R Int : 190 ms QRS Dur : 098 ms QT Int : 478 ms P-R-T Axes : 066 057 052 degrees QTc Int : 440 ms SINUS BRADYCARDIA POSSIBLE LEFT ATRIAL ENLARGEMENT RSR' IN V1 BORDERLINE ECG WHEN COMPARED WITH ECG OF 22-AUG-2016 19:44, NO MAJOR SEEN Confirmed by BABATUNDE RIZO MD ([id number]) on 10/18/2016 5:18:14 PM Referred By: Confirmed By:BABATUNDE RIZO MD
[2016-10-18] MEDS: diphenhydrAMINE HCL 50 MG CAPSULE PO PRN (22:13)
[2016-10-18] MEDS: THIAMINE HCL 100 MG TABLET (FP) PO SCH (22:14)
[2016-10-19] MEDS: ASPIRIN 81 MG CHEWABLE TABLETS PO SCH (09:55)
[2016-10-19] MEDS: PRENATAL VITAMINS W/ FOLIC ACID TABLET (FP) PO SCH (09:55)
[2016-10-19] MEDS: diazePAM 5 MG TABLET PO PRN ×2 (09:55→22:02)
[2016-10-19] MEDS: RANITIDINE HCL 150 MG TABLET (FP) PO SCH ×2 (09:58→22:02)
[2016-10-19] MEDS ORDERED: METHADONE HCL 5 MG TABLET (FOR DETOX USE ONLY) PO ONE (10:00)
--- NOTE | 2016-10-19 11:10 | PN ---
BHS COWS - Scale Resting Pulse: 0= [place] 80 or Below Sweatin= Chills/Flushing Restless Observation: 1= Difficult to Sit Still Pupil Size: 0= Normal to Room Light Bone or Joint Aches: 2= Severe Diffuse Aches Runny Nose/ Eye Tearin= Runny Nose/Eyes GI Upset > 30mins: 1= Stomach Cramp Tremor Observation of Outstretched Hands: 2= Slight Tremor Visible Yawning Observation: 1= 1-2x During Session Anxiety or Irritability: 2=Irritable/Anxious Goose Flesh Skin: 3=Piloerection COWS Score: 15 BHS Progress Note (SOAP) Subjective: Interrupted sleep, Body Aches. Objective: PT. A & O X 3, OBSERVED AMBULATING ON UNIT. NO ACUTE DISTRESS. PT. DENIES CHEST PAIN AND DIZZINESS. 10/19/16 11:06 Vital Signs Temperature 96.4 F L 10/19/16 09:08 Pulse Rate 51 L 10/19/16 09:08 Respiratory Rate 18 10/19/16 09:08 Blood Pressure 118/67 10/19/16 09:08 O2 Sat by Pulse Oximetry (%) Laboratory Tests 10/17/16 10/18/16 10/18/16 21:15 06:30 06:30 WBC 6.1 RBC 4.70 Hgb 11.5 L Hct 35.9 MCV 76.4 L MCH 24.4 L MCHC 31.9 L RDW 15.2 Plt Count 164 D MPV 8.7 Sodium Potassium Chloride Carbon Dioxide Anion Gap BUN Creatinine Creat Clearance w eGFR Random Glucose Calcium Total Bilirubin AST ALT Alkaline Phosphatase Total Protein Albumin Urine Color Ltyellow Urine Appearance Clear Urine pH 5.0 Ur Specific [place] 1.025 Urine Protein Negative Urine Glucose (UA) Negative Urine Ketones Negative Urine Blood Negative Urine Nitrite Negative Urine Bilirubin Negative Urine Urobilinogen Negative Ur Leukocyte Esterase Negative RPR Titer HIV 1&2 Antibody Screen Negative HIV P24 Antigen Negative 10/18/16 10/18/16 06:30 06:30 WBC RBC Hgb Hct MCV MCH MCHC RDW Plt Count MPV Sodium 140 Potassium 4.1 Chloride 103 Carbon Dioxide 31 Anion Gap 6 L BUN 15 Creatinine 0.9 Creat Clearance w eGFR > 60 Random Glucose 85 Calcium 8.7 Total Bilirubin 0.2 D AST 15 ALT 20 D Alkaline Phosphatase 66 D Total Protein 6.3 L Albumin 3.1 L Urine Color Urine Appearance Urine pH Ur Specific [place] Urine Protein Urine Glucose (UA) Urine Ketones Urine Blood Urine Nitrite Urine Bilirubin Urine Urobilinogen Ur Leukocyte Esterase RPR Titer Nonreactive HIV 1&2 Antibody Screen HIV P24 Antigen LABS NOTED. Assessment: 10/19/16 11:07 WITHDRAWAL SYMPTOMS. Plan: CONTINUE DETOX. INCREASE PO FLUID INTAKE.
[2016-10-19] MEDS: THIAMINE HCL 100 MG TABLET (FP) PO SCH (22:02)
[2016-10-19] MEDS: diphenhydrAMINE HCL 50 MG CAPSULE PO PRN (22:03)
[2016-10-20 09:44] VITALS: BP 101/67; PULSE 61; TEMP 96.4
[2016-10-20] MEDS ORDERED: METHADONE HCL 5 MG TABLET (FOR DETOX USE ONLY) PO ONE (10:00)
[2016-10-20] MEDS: PRENATAL VITAMINS W/ FOLIC ACID TABLET (FP) PO SCH (10:21)
[2016-10-20] MEDS: RANITIDINE HCL 150 MG TABLET (FP) PO SCH (10:21)
[2016-10-20] MEDS: ASPIRIN 81 MG CHEWABLE TABLETS PO SCH (10:21)
[2016-10-20] MEDS: diazePAM 5 MG TABLET PO PRN (10:21)
--- NOTE | 2016-10-20 11:54 | PN ---
BHS Progress Note (SOAP) Subjective: Sweating, Body Aches, Stomach Cramping. Objective: PT. A & O X 3, OBSERVED AMBULATING ON UNIT. NO ACUTE DISTRESS. 10/20/16 11:52 Vital Signs Temperature 96.4 F L 10/20/16 09:44 Pulse Rate 61 10/20/16 09:44 Respiratory Rate 18 10/20/16 09:44 Blood Pressure 101/67 10/20/16 09:44 O2 Sat by Pulse Oximetry (%) Laboratory Tests 10/17/16 10/18/16 10/18/16 21:15 06:30 06:30 WBC 6.1 RBC 4.70 Hgb 11.5 L Hct 35.9 MCV 76.4 L MCH 24.4 L MCHC 31.9 L RDW 15.2 Plt Count 164 D MPV 8.7 Sodium Potassium Chloride Carbon Dioxide Anion Gap BUN Creatinine Creat Clearance w eGFR Random Glucose Calcium Total Bilirubin AST ALT Alkaline Phosphatase Total Protein Albumin Urine Color Ltyellow Urine Appearance Clear Urine pH 5.0 Ur Specific [place] 1.025 Urine Protein Negative Urine Glucose (UA) Negative Urine Ketones Negative Urine Blood Negative Urine Nitrite Negative Urine Bilirubin Negative Urine Urobilinogen Negative Ur Leukocyte Esterase Negative RPR Titer HIV 1&2 Antibody Screen Negative HIV P24 Antigen Negative 10/18/16 10/18/16 06:30 06:30 WBC RBC Hgb Hct MCV MCH MCHC RDW Plt Count MPV Sodium 140 Potassium 4.1 Chloride 103 Carbon Dioxide 31 Anion Gap 6 L BUN 15 Creatinine 0.9 Creat Clearance w eGFR > 60 Random Glucose 85 Calcium 8.7 Total Bilirubin 0.2 D AST 15 ALT 20 D Alkaline Phosphatase 66 D Total Protein 6.3 L Albumin 3.1 L Urine Color Urine Appearance Urine pH Ur Specific [place] Urine Protein Urine Glucose (UA) Urine Ketones Urine Blood Urine Nitrite Urine Bilirubin Urine Urobilinogen Ur Leukocyte Esterase RPR Titer Nonreactive HIV 1&2 Antibody Screen HIV P24 Antigen LABS NOTED. Assessment: 10/20/16 11:52 WITHDRAWAL SYMPTOMS. Plan: CONTINUE DETOX.
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
[2016-10-21] MEDS ORDERED: METHADONE HCL 10 MG TABLET (FOR DETOX USE ONLY) PO ONE (10:00)
[2016-10-22] MEDS ORDERED: METHADONE HCL 5 MG TABLET (FOR DETOX USE ONLY) PO ONE (06:00)
== END 2016-10-20 14:08 | disposition left against medical advice (07) | DRG 894 ==
LOC: YASAS 16:14 → Y3N 17:25
PROVIDERS: ADMIT Internal Medicine; ATTEND Internal Medicine
PROC: HZ2ZZZZ Detoxification Services for Substance Abuse Treatment (ICD-10-PCS; principal; 2016-10-17)
DX: F11.23 Opioid dependence with withdrawal (principal); F17.213 Nicotine dependence, cigarettes, with withdrawal; K21.9 Gastro-esophageal reflux disease without esophagitis; J45.20 Mild intermittent asthma, uncomplicated; R26.2 Difficulty in walking, not elsewhere classified; Z99.89 Dependence on other enabling machines and devices; Z87.898 Personal history of other specified conditions; Z88.8 Allergy status to other drugs, medicaments and biological substances
CPT/HCPCS: 36415; 71020-TC; 80053; 81003; 85027; 86593; 87389; 93005; 93010